=== PATIENT | male | born 1965 | race Caucasian/White ===

== ENCOUNTER 2018-09-11 10:33 | Day surgery (SDC) | payer SELFPAY ==
--- NOTE | 2018-09-10 05:58 | EKG ---
Test Date: 2018-09-09 Test Time: 16:26:44 Buffer Copper: PILLO MEASUREMENT RESULTS: Intervals: Rate: 61 SC: 160 QRSD: 102 QT: 390 QTc: 392 [place]: P: 51 SC: 160 QRS: 70 T: 57 INTERPRETIVE STATEMENTS: Normal sinus rhythm Normal ECG No previous ECG available for comparison Electronically Signed On 09-10-18 05:57:48 CDT by Musa Colin
[2018-09-11] MEDS ORDERED: Ringers Lactate 1,000 ML IV ONE (11:04)
[2018-09-11] MEDS: OXYMETAZOLINE HCL 0.05% 15ML NAS ONE ×3 (11:55→12:05)
[2018-09-11] MEDS ORDERED: LIDOCAINE 1.5% W/EPI AMP 5 ML ONE (14:23)
[2018-09-11] MEDS ORDERED: NA CHLORIDE 0.9% 500 ML ONE (14:23)
[2018-09-11] MEDS ORDERED: LIDOCAINE 2% MPF 5 ML VIAL ONE (14:32)
[2018-09-11] MEDS ORDERED: PROPOFOL 200 MG/20 ML VIAL IV ONE (14:32)
[2018-09-11] MEDS ORDERED: FENTANYL CITR 100 MCG/2 ML ONE (14:32)
[2018-09-11] MEDS ORDERED: MIDAZOLAM HCL 2 MG/2 ML INJ ONE (14:32)
[2018-09-11] MEDS ORDERED: ROCURONIUM 50 MG/5 ML VIAL IV ONE (14:33)
[2018-09-11] MEDS ORDERED: ONDANSETRON 4 MG/2 ML VIAL ONE ×2 (14:33→15:23)
[2018-09-11] MEDS ORDERED: OXYMETAZOLINE HCL 0.05% 15ML NAS ONE (14:53)
[2018-09-11] MEDS ORDERED: DEXAMETHASONE 10 MG/ML VIAL ONE (15:23)
--- NOTE | 2018-09-11 15:46 | P.BOP ---
Preoperative diagnosis: septal deviation, chronic maxillary sinusitus Postoperative diagnosis: same Primary procedure: B max antrostomy Secondary procedure: septal deviation Business Assistant: NONE,NONE Estimated blood loss: 25ml Specimen: none Findings: L purulent maxillary sinusitis Anesthesia: General Complications: None Drain(s): Nasogastric Implants: L NC Xerogel Fluids & blood products: crystalloid 400ml Transferred to: Recovery Room Condition: Good
[2018-09-11] MEDS ORDERED: GLYCOPYRROLATE 0.2 MG/ML SYR ONE (15:47)
[2018-09-11] MEDS ORDERED: NEOSTIGMINE 1 MG/ML -10 ML VIAL ONE (15:48)
--- NOTE | 2018-09-12 03:32 | OP ---
Date of Procedure: 09/11/2018 Surgeon: Matilde Fox MD Preoperative Diagnoses: Left chronic maxillary sinusitis, left septal deviation, nasal congestion. Postoperative Diagnoses: Left chronic maxillary sinusitis, left septal deviation, nasal congestion, and right accessory os of the maxillary sinus. Procedure Performed: Bilateral nasal endoscopy with maxillary antrostomy, very limited on the right side, and septoplasty. Indication For Procedure: Rolo Walton is a 53-year-old, who presented with symptoms of left tena al obstruction and sinusitis. He underwent previous treatment at an outside facility, and a postoper ative CT scan showing a very narrow ostiomeatal complex bilaterally, and small to medium sized access ory os bilaterally, as well as the septal deviation. The risks, benefits, and alternatives of the pr oposed procedure were discussed, and the patient agreed to proceed. Description Of Procedure: The patient was brought to the operating room. He was placed under genera l anesthesia via oral endotracheal tube. The head of bed was turned 90 degrees. Nasal hairs were tr immed. Nasal endoscopy was performed, and photo documentation was obtained confirming left septal sp ur, left maxillary sinusitis with purulence, edema of the middle meatus, and a right accessory os. T he nasal cavity was packed with Afrin-soaked pledgets. After time for effect, these are removed. A 30-degree endoscope was used to perform a nasal endoscopy on the right side. A Reno is used to medi robin the middle turbinate, and visualization of the accessory os is easily obtained. A 90-degree Bl akesley is used to grasp the anterior superior aspect, and a bridge of tissue the natural os from the accessory os is easily removed. Photo documentation is obtained. The uncinate is not fo rmally removed on the right side. Attention was then turned to the left side. The middle turbinate is medialized with a Reno. The uncinate process and ethmoid bulla appeared moderately edematous. T he uncinate process is palpated and medialized with a maxillary seeker, then removed with a backbiter and 90-degree Blakesley. After removal of the uncinate process, the maxillary sinus opening is enla rged using a microdebrider as well as 90-degree Blakesley. The mucosa of the maxillary sinus appeare d significantly thickened, and purulence is noted, and a specimen is collected for culture. The sinu s was then thoroughly irrigated with several aliquots of sterile saline. Afrin-soaked pledget is jeremie jase to aid in hemostasis, and attention is turned to the septum. Given the relatively normal appeara nce of the caudal and cartilaginous septum, a modified septoplasty approach is undertaken. The left septal spur is injected with local anesthetic. A sickle knife is then used to make a horizontal inci kings parallel to the floor of the nose along the rim of the septal spur. A Vinny elevator is used t o elevate the mucosal flap over and under the spur. The Vinny elevator was then used to fracture th e bone of the septum just above the spur and downfracture the triangular portion of the spur, which w as then removed using Jose. After adequate removal of the spur, the nasal airway was felt to be significantly improved. Afrin-soaked pledgets were placed for several minutes and then removed. Th e nasal endoscope was then employed. All pledgets were removed. The nasopharynx, sinuses, and septu m were carefully examined, and there was felt to be good hemostasis. A Xeroform dissolvable sinus dr essing was placed within the middle meatus and left nasal cavity. This was then saturated with salin e, and the patient was returned to care of Anesthesia for awakening and extubation in the operating r oom, which proceeded without difficulty. Complications: None. Disposition: The patient will be discharged home later today with oral Bactrim and tramadol as neede d for pain. We will follow up with culture results to determine whether empiric antibiotics are suff icient or whether additional antibiotic is necessary. NEPTALI Voice ID: [id number] Report ID: [id number]
== END 2018-09-11 17:15 | disposition home or self-care (01) ==
LOC: OR 10:33
PROVIDERS: ATTEND Otolaryngology
PROC: 099R8ZZ Drainage of Left Maxillary Sinus, Via Natural or Artificial Opening Endoscopic (ICD-10-PCS; 2018-09-11)
PROC: 099Q8ZZ Drainage of Right Maxillary Sinus, Via Natural or Artificial Opening Endoscopic (ICD-10-PCS; 2018-09-11)
PROC: 09SM4ZZ Reposition Nasal Septum, Percutaneous Endoscopic Approach (ICD-10-PCS; principal; 2018-09-11 13:00)
DX: J34.2 Deviated nasal septum (principal); J32.0 Chronic maxillary sinusitis; J34.89 Other specified disorders of nose and nasal sinuses
CPT/HCPCS: 87070; 87077; 87186; 93005; J1100; J2001; J2250; J2405; J2704; J2710; J3010